=== PATIENT | female | born 1955 | race Caucasian/White ===

== ENCOUNTER 2023-06-08 10:01 | Emergency (ER) | payer OTHER ==
[~2023-06-08] VITALS: Ht 162.6 cm; Wt 59.0 kg
[2023-06-08 10:04] VITALS: O2SAT 95
[2023-06-08] MEDS ORDERED: SODIUM CHLORIDE 0.9% 1,000 ML IV ONE (10:15)
[2023-06-08 10:48] LABS: BASOPHILS % 0.8 % (0.0-2.0); EOSINOPHILS % 2.4 % (0.0-5.0); HEMATOCRIT. 37.2 % (36.0-48.0); HEMOGLOBIN. 12.4 g/dL (12.0-16.0); LYMPHOCYTES % 26.2 % (20.0-50.0); MEAN CORPUSCULAR HEMOGLOBIN 31.2 pg (28.0-32.0); MEAN CORPUSCULAR HGB CONC 33.4 g/dL (31.0-37.0); MEAN CORPUSCULAR VOLUME 93.3 fL (81.0-99.0); MEAN PLATELET VOLUME 7.7 fl (7.4-10.4); MONOCYTES % 5.6 % (2.0-8.0); PLATELET 197 x1000/uL (130-400); RED BLOOD CELL COUNT 3.99 mill/uL (4.2-5.4); RED CELL DISTRIBUTION WIDTH 12.9 % (11.6-14.6); WHITE BLOOD COUNT 6.2 x1000/uL (4.5-11.0)
[2023-06-08 11:21] LABS: CHLORIDE 111 mEq/L (98-107); INDEX HEMOLYSI 3 (1-3); INDEX ICTERIC 1 (1-4); INDEX LIPEMIC 1 (1-3); POTASSIUM 3.9 mEq/L (3.5-5.1); SODIUM 140 mEq/L (136-145)
[2023-06-08 11:28] LABS: ALANINE AMINOTRANSFERASE 40 IU/L (13-61); ALBUMIN 3.3 g/dL (3.4-5.0); ASPARTATE AMINOTRANSFERASE 31 IU/L (15-37); BILIRUBIN TOTAL 0.4 mg/dL (0.1-1.0); CALCIUM 8.5 mg/dL (8.5-10.1); CARBON DIOXIDE 24 mEq/L (21-32); GLUCOSE 122 mg/dL (70-105); PROTEIN TOTAL 6.7 g/dL (6.0-8.3); TROPONIN I HIGH SENSITIVITY 6 ng/L (<54); UREA NITROGEN BLOOD 15 mg/dL (7-21)
[2023-06-08 11:55] VITALS: BP 121/72; PULSE 61; RESP 16; TEMP 97.8
== END 2023-06-08 12:05 | disposition home or self-care (01) ==
LOC: ER 10:32
DX: R55 Syncope and collapse (principal)
CPT/HCPCS: 99285; 96360; 71045; 80053; 83605; 85025; 84484; 36415; 93005; J7030